=== PATIENT | male | born 1945 | race Caucasian/White ===

== ENCOUNTER 2017-04-07 08:00 | Outpatient (CLI) | payer MEDICARE ==
--- NOTE | 2017-04-07 09:44 | RAD ---
RIGHT FOOT THREE VIEWS: HISTORY: Right foot and toe pain. FINDINGS: Lisfranc joint alignment is anatomic. Pes planus is apparent on the lateral view. No acute fractur e or dislocation is evident. There are degenerative changes throughout the foot, most pronounced at the first metatarsophalangeal joint, where there is joint space narrowing, osteophytosis, and subch ondral sclerosis. Achilles and plantar enthesophytes arise from the posterior aspect of the calcane us. IMPRESSION: Osteoarthritis and other chronic type findings, as detailed above. POS: [facility]
== END 2017-04-07 08:01 | disposition home or self-care (01) ==
LOC: RAD-FRANK 08:00
PROVIDERS: ATTEND Nurse Practitioner Family
DX: Z23 Encounter for immunization (principal); M79.671 Pain in right foot; M19.071 Primary osteoarthritis, right ankle and foot

== ENCOUNTER 2018-03-29 14:01 | Outpatient (CLI) | payer MEDICARE ==
--- NOTE | 2018-03-29 15:49 | RAD ---
THREE VIEWS LEFT FOOT: Date: 03-29-18 Comparison: None History: Left sided foot pain. FINDINGS: Scattered degenerative changes of the proximal and distal interphalangeal joints noted. There is mode rate degenerative change involving the first metatarsal phalangeal joint. There is enthesophyte forma tion involving the origin of the plantar aponeurosis and the insertion of the Achilles tendon. There is nonspecific soft tissue swelling involving the dorsal aspect of the forefoot. This could be relate d to trauma or inflammatory/infectious process. Clinical correlation is required. IMPRESSION: Degenerative changes and calcaneal spurring. Dorsal soft tissue swelling involving the forefoot, etio logy uncertain. No displaced fracture noted. POS: [facility]
== END 2018-03-29 14:02 | disposition home or self-care (01) ==
LOC: RAD-FRANK 14:01
PROVIDERS: ATTEND Nurse Practitioner Family
DX: M79.672 Pain in left foot (principal); M19.072 Primary osteoarthritis, left ankle and foot; M77.32 Calcaneal spur, left foot; M79.89 Other specified soft tissue disorders

== ENCOUNTER 2018-08-02 14:19 | Outpatient (CLI) | payer MEDICARE ==
--- NOTE | 2018-08-02 15:12 | RAD ---
CHEST TWO VIEWS: History: COPD. Comparison: 02-20-17 FINDINGS: Heart size is upper limits. There are atherosclerotic changes of the aorta. Lungs are clear of infilt rates. There is flattening to the hemidiaphragms. IMPRESSION: No active intrathoracic disease. Stable exam. POS: [facility]
== END 2018-08-02 14:20 | disposition home or self-care (01) ==
LOC: RAD-FRANK 14:19
PROVIDERS: ATTEND Nurse Practitioner Family
DX: J44.9 Chronic obstructive pulmonary disease, unspecified (principal)
CPT/HCPCS: 71046

== ENCOUNTER 2019-04-23 09:16 | Outpatient (CLI) | payer MEDICARE ==
--- NOTE | 2019-04-23 10:05 | RAD ---
PA AND LATERAL VIEWS CHEST: Date: 04/23/19 HISTORY: COPD. FINDINGS: Comparison made with exam of 08/02/18. The heart size is normal. The aorta is tortuous. Changes of COPD are again seen without focal areas o f consolidation, pneumothoraces, or pleural effusions. Left-sided pacemaker device has been placed in the interim with bipolar leads in the right atrium and right ventricle. There are mild degenerative changes in the spine. IMPRESSION: No acute process. POS: [facility]
== END 2019-04-23 09:17 | disposition home or self-care (01) ==
LOC: RAD-FRANK 09:16
PROVIDERS: ATTEND Nurse Practitioner Family
DX: J44.9 Chronic obstructive pulmonary disease, unspecified (principal)
CPT/HCPCS: 71046

== ENCOUNTER 2021-06-22 16:33 | Outpatient (CLI) | payer MEDICARE | END 2021-06-22 16:34 | disposition home or self-care (01) | LOC: RAD-FRANK 16:33 | PROVIDERS: ATTEND Nurse Practitioner Family | DX: R05.9 Cough, unspecified (principal) | CPT/HCPCS: 71046 ==

== ENCOUNTER 2023-11-14 11:04 | Day surgery (SDC) | payer MEDICARE ==
[2023-11-13 10:54] VITALS: BMI 37.7
[2023-11-14] MEDS ORDERED: Lidocaine 1% PF 5 ML VIAL ONE (12:46)
[2023-11-14] MEDS ORDERED: PROPOFOL 40 ML ONE (12:46)
[2023-11-14] MEDS ORDERED: Ketamine In 0.9 % NaCl 50 MG/5 ML SYRINGE ONE (13:15)
[2023-11-14] MEDS ORDERED: GLYCOPYRROLATE/PF 0.2 MG/ML VIAL ONE ×2 (13:15→13:16)
== END 2023-11-14 15:30 | disposition home or self-care (01) ==
LOC: SDC 11:04
PROVIDERS: ATTEND Internal Medicine Gastroenterology
PROC: 0DBM8ZZ Excision of Descending Colon, Via Natural or Artificial Opening Endoscopic (ICD-10-PCS; principal; 2023-11-14)
PROC: 0DBL8ZZ Excision of Transverse Colon, Via Natural or Artificial Opening Endoscopic (ICD-10-PCS; 2023-11-14)
PROC: 0DBN8ZZ Excision of Sigmoid Colon, Via Natural or Artificial Opening Endoscopic (ICD-10-PCS; 2023-11-14)
DX: Z12.11 Encounter for screening for malignant neoplasm of colon (principal); R19.5 Other fecal abnormalities; D12.5 Benign neoplasm of sigmoid colon; D12.3 Benign neoplasm of transverse colon; D12.4 Benign neoplasm of descending colon; K63.5 Polyp of colon; K57.30 Diverticulosis of large intestine without perforation or abscess without bleeding; F41.9 Anxiety disorder, unspecified; J01.00 Acute maxillary sinusitis, unspecified; M17.0 Bilateral primary osteoarthritis of knee; J44.9 Chronic obstructive pulmonary disease, unspecified; K21.9 Gastro-esophageal reflux disease without esophagitis; I10 Essential (primary) hypertension; R73.01 Impaired fasting glucose; Z95.0 Presence of cardiac pacemaker; Z98.890 Other specified postprocedural states; Z80.0 Family history of malignant neoplasm of digestive organs; Z86.010 Personal history of colon polyps; Z79.82 Long term (current) use of aspirin; Z79.899 Other long term (current) drug therapy
CPT/HCPCS: 45380; 45385; J2704; J3490 ×2; 88305

== ENCOUNTER 2024-02-25 00:12 | Emergency (ER) | payer MEDICARE ==
[2024-02-25 00:47] LABS: #Basophils 0.05 10x3/uL (0.0-0.2); %Basophils 0.4 % (0.0-1.0); %Eosinophils 2.6 % (0.0-10.0); %Lymphocytes 13.5 % (21.0-51.0); %Neutrophils 75.2 % (42.0-75.0); Hematocrit 45.3 % (42.0-52.0); Mean Corpuscular HGB CONC 33.1 g/dL (32.0-36.0); Mean Corpuscular Hemoglobin 29.4 pg (27.0-31.0); Mean Corpuscular Volume 88.8 fL (78.0-98.0); Mean Platelet Volume 9.4 fL (7.4-10.4); Platelet Count 229 10x3/uL (130-400); RBC Distribution Width 12.9 % (11.5-14.5)
[2024-02-25 01:01] LABS: ALT (SGPT) 13 U/L (8-55); AST (SGOT) 18 U/L (5-34); Albumin 3.8 g/dL (3.4-4.8); Alkaline Phosphatase 86 U/L (40-110); Anion Gap 16 mmol/L (10-20); BUN (Urea Nitrogen) 19 mg/dL (8.4-25.7); Bilirubin, Total 0.7 mg/dL (0.2-1.2); Calc. Creatinine Clearance 0 mL/min (70-130); Calcium 9.9 mg/dL (7.8-10.44); Carbon Dioxide 29 mmol/L (23-31); Chloride 101 mmol/L (98-107); Estimated GFR 44; Globulin 4.4 g/dL (2.4-3.5); Glucose 125 mg/dL (83-110); Lipase 13 U/L (8-78); Potassium 4.3 mmol/L (3.5-5.1); Protein, Total 8.2 g/dL (5.8-8.1); Sodium 142 mmol/L (136-145)
[2024-02-25] MEDS ORDERED: Morphine 4 MG/ML VIAL ONE (02:32)
[2024-02-25] MEDS ORDERED: Iopamidol-370 76% 500 ML MDV (1 ML CHARGE) ONE (12:11)
== END 2024-02-25 03:17 | disposition home or self-care (01) ==
LOC: ERS 00:12
DX: K63.89 Other specified diseases of intestine (principal); J44.9 Chronic obstructive pulmonary disease, unspecified
CPT/HCPCS: 70450; 74177; 80053; 83690; 85025; 93005; J2272; 96374; Q9967